=== PATIENT | male | born 2000 | race Hispanic/Latino ===

== ENCOUNTER 2021-02-23 19:41 | Emergency (ER) | payer OTHER ==
[~2021-02-23] VITALS: Ht 185.4 cm; Wt 94.0 kg
[~2021-02-23 19:41] MED LIST: NO HOME MEDS
[2021-02-23] MEDS ORDERED: CIPRODEX1 ML OT (20:09)
[2021-02-23] MEDS ORDERED: AMOXICILLIN500 MG PO (20:09)
[2021-02-23] MEDS ORDERED: PERCOCET 5/325M1 TAB PO (20:09)
[2021-02-23 20:33] VITALS: BP 131/79
== END 2021-02-23 20:39 | disposition home or self-care (01) | DRG 153 ==
LOC: ED 19:41
DX: H66.91 Otitis media, unspecified, right ear (principal); H60.91 Unspecified otitis externa, right ear

== ENCOUNTER 2021-03-27 20:47 | Observation (INO) | payer OTHER ==
[~2021-03-27] VITALS: Ht 185.4 cm; Wt 108.0 kg
[~2021-03-27 20:47] MED LIST changes: +AMOXICILLIN500 MG PO; +CIPRODEX1 ML OT; +PERCOCET 5/325M1 TAB PO
--- NOTE | 2021-03-27 20:55 | NUR ---
PT AMBUALTED TO ROOM WITH STEADY GAIT FOR BEDSIDE TRIAGE
[2021-03-27 21:28] LABS: IMMATURE GRANULOCYTES 0.4 % (0.0-5.0); MEAN CORPUSCULAR HGB CONC 32.6 g/dL CAL (32.0-36.0); NEUT# 4.22 thou/uL (1.82-7.42); RED BLOOD COUNT 4.74 mill/uL (4.70-6.10)
[2021-03-27 21:31] LABS: URINE BILIRUBIN - DIPSTICK NEGATIVE (NEGATIVE); URINE BLOOD DIPSTICK NEGATIVE (NEGATIVE); URINE COLOR YELLOW; URINE GLUCOSE - DIPSTICK >=1000 mg/dL (NEGATIVE); URINE KETONE 40 mg/dL (NEGATIVE); URINE LEUK ESTERASE NEGATIVE (NEGATIVE); URINE PH 5.5 (4.5-8.0); URINE PROTEIN - DIPSTICK NEGATIVE (NEG-TRACE); URINE SPECIFIC GRAVITY >=1.030; URINE UROBILINOGEN - DIPSTICK 0.2 E.U./dL (0.2)
[2021-03-27 21:32] LABS: HEMATOCRIT 43.5 % (39.0-50.0); HEMOGLOBIN 14.2 g/dl (14.0-18.0); MEAN CELL VOLUME 91.8 fL CALC (80.0-100.0)
[2021-03-27 21:33] LABS: URINE NITRITE - DIPSTICK NEGATIVE (Negative)
[2021-03-27 21:43] LABS: ALKALINE PHOSPHATASE 128 u/l (38-126); ANION GAP 21 (6-22 (CALC)); BILIRUBIN, TOTAL 0.6 mg/dL (0.0-1.4); BUN 14 mg/dL (9-20); BUN/CREATININE RATIO 21 (12-20 (CALC)); CARBON DIOXIDE 19 mmol/l (22-30); CHLORIDE 100 mmol/l (95-108); CREATININE 0.7 mg/dL (0.7-1.3); GFR > 60 ML/MIN (>=60 (CALC)); GFR FOR AFR.AMER. > 60 ML/MIN (>=60 (CALC)); POTASSIUM 4.3 mmol/l (3.5-5.1); SGOT/AST 20 u/l (17-59); SODIUM 136 mmol/l (137-146)
[2021-03-27 21:54] LABS: MYOGLOBIN 10 ng/mL (0 - 121)
--- NOTE | 2021-03-27 22:00 | NUR ---
CARE ASSUMED, PT RESTING AWARE OF AWAITING LAB RESULTS.
--- NOTE | 2021-03-27 22:34 | NUR ---
MEDICATED WITH INSULIN ORDERED. WILL RECHECK BLOOD SUGAR, CALL ALEGRE WITHIN REACH
--- NOTE | 2021-03-27 23:38 | NUR ---
REPORT CALLED TO DANIELLA ON MED SURG.
[2021-03-27 23:44] VITALS: BP 132/77
--- NOTE | 2021-03-27 23:45 | NUR ---
PT ARRIVED TO THE FLOOR ESCORTED BY ER STAFF IN A WHEELCHAIR. ADMISSION ASSESSMENTS COMPLETED, PLEASE SEE DOCUMENTATION. NO S/S OF DISTRESS. C/O EARACHE ON RIGHT SIDE, WILL ADVISE DOCOR TOMORROW TO HAVE EAR EVALUATED. NO PAIN MEDS ORDERED CURRENTLY, PT INDICAATED HE WOULD BE ALRIGHT FOR TONIGHT AND HE WILL DISCUSS WITH DOCTOR TOMORROW. LAC #[id number]@125ML/HR.
--- NOTE | 2021-03-27 23:45 | NUR ---
PT TRANSPORTED TO MED SURG VIA WHEELCHAIR ALL BELONGINGS SENT [facility] PATIENT ACCEPTING NURSE AT BEDSIDE ON ARRIVAL
[2021-03-28 04:00] VITALS: BP 129/76
--- NOTE | 2021-03-28 04:18 | NUR ---
PT SITTING UP IN BED PLAYING ON HIS PHONE. NO COMPLAINTS VOICED. BS CHECKED AT 0330, 235. PT NDICATED HE IS FEELING FINE NOW. ENCOURAGED PT TO REST. SAFETY PRECAUTIONS IN PLACE, WILL MONITOR
[2021-03-28 07:19] VITALS: BP 115/71
--- NOTE | 2021-03-28 07:57 | NUR ---
SHIFT CHANGE REPORT, PT SLEEPING BUT AWAKENED TO VERBAL STIMULI, ORIENTED, DENIES DISCOMFORT, IVF INFUSING, CALL ALEGER IN REACH, BED LOCKED IN LOWEST POSITION.
[2021-03-28] MEDS ORDERED: GLIPIZIDE5 M2 PO (10:47)
[2021-03-28] MEDS ORDERED: METFORMIN500 M2 PO (10:49)
--- NOTE | 2021-03-28 19:36 | NUR ---
Discharge instructions given. Patient verbalizes understanding of same. Discharged in good condition via Ambulatory to Home with family. All belongings sent with pt.
== END 2021-03-28 13:36 | disposition home or self-care (01) | DRG 639 ==
LOC: ED 20:47 → ED-I 22:20 → MS2 22:42 → ED 22:42 → MS2 03-28 13:36
PROVIDERS: Emergency Medicine; ADMIT Internal Medicine; ATTEND Internal Medicine
DX: E11.65 Type 2 diabetes mellitus with hyperglycemia (principal); Z83.3 Family history of diabetes mellitus; Z20.822 Contact with and (suspected) exposure to COVID-19
CPT/HCPCS: G0378

== ENCOUNTER 2021-03-31 19:13 | Emergency (ER) | payer OTHER ==
[~2021-03-31] VITALS: Ht 185.4 cm; Wt 113.0 kg
[~2021-03-31 19:13] MED LIST changes: +GLIPIZIDE5 M2 PO; +METFORMIN500 M2 PO
[2021-03-31 20:14] LABS: HEMATOCRIT 46.4 % (39.0-50.0); HEMOGLOBIN 15.6 g/dl (14.0-18.0); IMMATURE GRANULOCYTES 0.2 % (0.0-5.0); MEAN CELL VOLUME 88.5 fL CALC (80.0-100.0); MEAN CORPUSCULAR HGB 29.8 pG CALC (26.0-32.0); MEAN CORPUSCULAR HGB CONC 33.6 g/dL CAL (32.0-36.0); NEUT# 8.09 thou/uL (1.82-7.42); RED BLOOD COUNT 5.24 mill/uL (4.70-6.10); RED CELL DISTRI WIDTH 11.8 % (11.5-15.5)
[2021-03-31 20:27] LABS: ALBUMIN 4.3 g/dL (3.2-5.0); ALKALINE PHOSPHATASE 86 u/l (38-126); BUN 12 mg/dL (9-20); BUN/CREATININE RATIO 18 (12-20 (CALC)); CHLORIDE 97 mmol/l (95-108); CREATININE 0.6 mg/dL (0.7-1.3); GFR > 60 ML/MIN (>=60 (CALC)); GFR FOR AFR.AMER. > 60 ML/MIN (>=60 (CALC)); POTASSIUM 4.4 mmol/l (3.5-5.1); SGOT/AST 30 u/l (17-59)
[2021-03-31 20:29] LABS: ANION GAP 26 (6-22 (CALC)); BILIRUBIN, TOTAL 1.3 mg/dL (0.0-1.4); CARBON DIOXIDE 10 mmol/l (22-30); SODIUM 129 mmol/l (137-146); TOTAL PROTEIN 8.5 g/dL (6.3-8.2)
[2021-03-31 20:35] LABS: MYOGLOBIN 13 ng/mL (0 - 121)
[2021-03-31 21:53] VITALS: BP 117/56
== END 2021-03-31 22:03 | disposition home or self-care (01) | DRG 639 ==
LOC: ED 19:13
PROVIDERS: Family Medicine
DX: E11.65 Type 2 diabetes mellitus with hyperglycemia (principal); Z79.84 Long term (current) use of oral hypoglycemic drugs